=== PATIENT | male | born 1940 | race Caucasian/White ===

== ENCOUNTER 2016-06-02 11:45 | Emergency (ER) | payer MEDICARE ==
[~2016-06-02] VITALS: Ht 188 cm; Wt 86.4 kg
[2016-06-02 11:48] VITALS: BP 84/56; PULSE 69; RESP 20; O2SAT 94
--- NOTE | 2016-06-02 12:29 | ED.REPORT ---
HPI-General Illness Date of Service Jun 02, 2016 ED Provider: Aj Zhao DO Pt is a 75 year old male who presents to the ED with concerns for sore throat and weakness that began several days ago. He reports that the weakness is causing him to have frequent falls, and is making it difficult for his to ambulate. Pt states that he is not able to eat of drink normally, he has been having fevers off and on, a cough and full body aches. Pt denies any nausea, vomiting, diarrhea, headache or any other symptoms. Nursing Notes Stated Complaint: WEAKNESS Chief Complaint: General Complaint Nursing Notes Reviewed: Yes Allergies: Coded Allergies: No Known Allergies (Unverified , 06/02/16) Scheduled Oseltamivir Phosphate (Tamiflu) 75 Mg Capsule 75 MG PO BID General Time Seen by MD: 12:28 Chief Complaint Multip medical complaints, Not feeling well, Weakness Hx Obtained From: Patient, Spouse Arrived By: Wheelchair Sudden in Onset?: Yes Onset Occurred: 4 days ago Symptom Duration: Since onset Quality: Painful Severity: Current: Mild Severity: Maximum: Mild Similar Sx Previous: Yes Review of Systems Full Review of Systems Constitutional: Reports: Chills, Fever, Weakness - generalized, Denies: Malaise Ears / Nose / Throat: Reports: Sore throat Respiratory: Reports: Non-productive cough, Denies: Shortness of breath, Wheezing Cardiovascular: Denies: Chest pain, Syncope GI: Denies: Abdominal pain, Constipation, Diarrhea, Nausea, Vomiting Male: Denies Dysuria, Denies Flank pain, Denies Urinary frequency, Denies Urinary urgency Musculoskeletal: Denies: Back pain, Extremity pain, Neck pain Skin: Denies Diaphoresis Neurologic: Reports: Weakness, Denies: Abnormal movement, Change LOC, Dizziness, Headache, Seizure, Syncope Complete sys rev & neg: except as marked. Physical Exam Vital Signs Vital Signs Date Time Temp Pulse Resp B/P Pulse Ox O2 Delivery O2 Flow Rate FiO2 06/02/16 14:39 73 17 104/51 99 Room Air 06/02/16 13:06 68 10 114/45 100 06/02/16 11:48 37.4 69 20 84/56 94 Room Air Initial VS: Reviewed General/Constitutional: Well-developed, Well-nourished Head / Eyes: Atraumatic, Normocephalic, PERRL Neck: Supple, Non-tender, Full range of motion Respiratory: Breath sounds normal, Clear to auscultation, No respiratory distress Cardiovascular: Regular rate & rhythm, Heart sounds normal, Intact distal pulses Abdomen / GI: Soft, Non-tender, No guarding, No rebound, No distention Skin: Warm, Dry, No cyanosis Neurologic: Alert, Oriented, Nonfocal Psychiatric: Mood/affect normal, Behavior normal, Normal thought content ENT: Atraumatic Mouth: Positive: Mucous membranes dry Throat appears redenned Interpretation & Diagnostics Lab Results Interpretation Result Diagram: 06/02/16 1230 06/02/16 1230 Test 06/02/16 12:30 White Blood Count 13.0th/mm3 (3.8-10.1) Red Blood Count 4.60mil/mm3 (4.40-5.80) Hemoglobin 14.1g/dL (13.8-17.2) Hematocrit 41.2% (41.0-50.0) Mean Corpuscular Volume 89.6fL (81-100) Mean Corpuscular Hemoglobin 30.7pg (27.0-35.0) Mean Corpuscular Hemoglobin Concent 34.2% (32.0-37.0) Red Cell Distribution Width 13.6% (12.3-15.4) Platelet Count 147bil/L (150-400) Neutrophils (%) (Auto) 77.8% (40-74) Lymphocytes (%) (Auto) 8.9% (14-46) Monocytes (%) (Auto) 12.9% (4-12) Eosinophils (%) (Auto) 0% (0-5) Basophils (%) (Auto) 0.1% (0-3) Sodium Level 135mEq/L (134-144) Potassium Level 4.0mEq/L (3.5-5.2) Chloride Level 98mEq/L (97-108) Carbon Dioxide Level 19mmol/L (18-29) Blood Urea Nitrogen 26mg/dL (8-27) Creatinine 1.23mg/dL (0.76-1.27) Estimat Glomerular Filtration Rate 61mL/min (>59) Glucose Level 119mg/dL (60-99) Lactic Acid Level 1.4mmol/L (0.4-2.0) Calcium Level 8.6mg/dL (8.5-10.1) Magnesium Level 2.0mg/dL (1.6-2.6) Total Bilirubin 1.1mg/dL (0.0-1.2) Aspartate Amino Transf (AST/SGOT) 29U/L (0-50) Alanine Aminotransferase (ALT/SGPT) 19U/L (0-44) Alkaline Phosphatase 53U/L (25-160) Troponin T < 0.010ug/L (0.0-0.011) Total Protein 7.1g/dL (6.4-8.4) Albumin 4.2g/dL (3.4-5.0) ECG Interpretation ECG Interpretation: SR - 79 Time: 12:40 Interpreted by: ED physician Normal ECG Interpretation: Normal axis, Normal intervals X-Ray Chest Interpretation Chest Xray Interpretation: IMPRESSION: No acute cardiopulmonary disease. Dictated by: Trey Vargas M.D. on 06/02/2016 at 13:00 View: Portable, 1 view Interpretation / Wet Read by: Interpret - Radiologist Re-Eval/Medical Decision Med Decision/Clinical Course Likely weakness and mild dehydration due to influenza. Patient's labs are unremarkable he was mildly hypotensive though this improved with IV fluids. The patient is feeling better and is requesting discharge home. While his initial hypotension is of some concern, the patient is now generally well-appearing requesting discharge home, and agrees to the discharge plan. Return in follow-up precautions given. Tamiflu prescribed. Source of Hx: Old records Time of Eval: 13:13 Re-Evaluation/Progress Note: Pt is rechecked and informed of his labs and imaging results and the plan to discharge him at this time. His blood pressure has improved. He understands and agrees, all questions are addressed. Counseled Regarding: Diagnosis, Lab results, Need for follow-up, When/why to return to ED Discharge & Departure Primary Impression: Influenza A Disposition: Home Discharge Condition All VS Reviewed: Yes Condition: Stable Patient Instructions: Influenza (ED) Additional Instructions: You had influenza A. Your blood pressure was low likely from dehydration. Sure to eat and drink regularly, take Tamiflu as prescribed. Call your regular doctor for follow-up in the next 2 days. Return to the ER as needed for worsening symptoms. Referrals: Chino Fleming DO (PCP) Scribe Attestation Portions of this note were transcribed by Alexa Ferguson. I, Dr. Zhao personally performed the history, physical exam and medical decision-making; I reviewed and confirmed the accuracy of the information in the transcribed note. Signed by: Jeannie Quiroga, 06/02/2016 1424 copies to: Chino Fleming Timothy S DO Jun 02, 2016 12:28 BRENDON FERGUSON Jun 02, 2016 12:36
[2016-06-02] MEDS ORDERED: 0.9% Sodium Chloride 1,000 ML IV ONE (12:33)
--- NOTE | 2016-06-02 13:02 | DRSVH ---
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 TECHNIQUE: One view of the chest was acquired. COMPARISON: [facility], CR, CHEST 2VW, 09/15/2006, 13:01. FINDINGS: Surgical changes and devices: None. Lungs and pleura: No pleural effusions or pneumothorax. Lungs are clear. Mediastinum: Mediastinal contours appear normal. Heart size is normal. Bones and chest wall: No suspicious bony lesions. Overlying soft tissues appear unremarkable. IMPRESSION: No acute cardiopulmonary disease. Dictated by: Trey Vargas M.D. on 06/02/2016 at 13:00 Approved by: Trey Vargas M.D. on 06/02/2016 at 13:00
[2016-06-02 13:04] LABS: BASOPHILS % (AUTO) 0.1 % (0-3); EOSINOPHILS % (AUTO) 0 % (0-5); MONOCYTES % (AUTO) 12.9 % (4-12); Mean Corpuscular Hemoglobin 30.7 pg (27.0-35.0); Mean Corpuscular Volume 89.6 fL (81-100); NEUTROPHILS % (AUTO) 77.8 % (40-74); Platelet Count 147 bil/L (150-400)
[2016-06-02 13:06] VITALS: BP 114/45; PULSE 68; RESP 10; O2SAT 100
[2016-06-02 13:48] LABS: TROPONIN T < 0.010 ug/L (0.0-0.011)
[2016-06-02] MEDS ORDERED: TAM75UDCAP PO (14:24)
[2016-06-02 14:39] VITALS: BP 104/51; PULSE 73; RESP 17; O2SAT 99
== END 2016-06-02 14:24 | disposition home or self-care (01) ==
LOC: SED 11:45
DX: J10.1 Influenza due to other identified influenza virus with other respiratory manifestations (principal); R29.6 Repeated falls
CPT/HCPCS: 36415; 71010; 80053; 83605; 83735; 84484; 85025; 87040; 87804; 93005; 96360; 99285; J7030